=== PATIENT | female | born 1990 | race American Indian/Alaskan Native ===

== ENCOUNTER 2017-11-19 20:21 | Emergency (ER) | payer MEDICAID ==
[2017-11-19 20:31] VITALS: BMI 24.6
--- NOTE | 2017-11-19 20:41 | ED PDOC ---
Arrival/HPI <Neal Esquivel - Last Filed: 11/19/17 22:27> - General Historian: Patient <Shilpi Olmstead - Last Filed: 11/20/17 01:09> - General Chief Complaint: Female Genitourinary Time Seen by Provider: 11/19/17 20:33 - History of Present Illness Narrative History of Present Illness (Text): 11/19/17 20:39 27-year-old female presents today with a 2 day history of lower abdominal pain and vaginal bleeding which has increased slightly today. Patient denies headache dizziness or weakness. Denies urinary symptoms. Patient denies back pain. Patient states she was seen by her australian rules footballer and was scheduled to have an ultrasound tomorrow to evaluate for . Patient states she had a previous ultrasound that showed that she had an ovarian cyst but then when she became they were concerned about the possibility of an ectopic . Patient states her last menstrual cycle was October 06. No medications have been taken at home. Patient states she was spotting yesterday and today she has a little heavier flow. (Shilpi Olmstead) Past Medical History - Provider Review Nursing Documentation Reviewed: Yes - Travel History Have you recently traveled outside [place] w/in the past 3 mons?: No - Past History Past History: No Previous - Infectious Disease Hx of Infectious Diseases: None - Tetanus Immunization Tetanus Immunization: Unknown - Past Medical History Past Medical History: No Previous - Psychiatric Hx Depression: No Hx Emotional Abuse: No Hx Physical Abuse: No Hx Substance Use: No - Past Surgical History Past Surgical History: No Previous - Anesthesia Hx Anesthesia: No - Suicidal Assessment Feels Threatened In Home Enviroment: No <Shilpi Olmstead - Last Filed: 11/20/17 01:09> Family/Social History - Physician Review Nursing Documentation Reviewed: Yes Family/Social History: Unknown Family HX Smoking Status: Unknown If Ever Smoked Hx Alcohol Use: No Hx Substance Use: No Hx Substance Use Treatment: No <Shilpi Olmstead - Last Filed: 11/20/17 01:09> Allergies/Home Meds <Neal Esquivel - Last Filed: 11/19/17 22:27> <Shilpi Olmstead - Last Filed: 11/20/17 01:09> Allergies/Adverse Reactions: Allergies No Known Allergies Allergy (Verified 05/08/16 12:34) Review of Systems - Review of Systems Constitutional: absent: Fatigue, Fevers Respiratory: absent: SOB, Cough Cardiovascular: absent: Chest Pain, Palpitations Gastrointestinal: Abdominal Pain. absent: Constipation, Diarrhea, Nausea, Vomiting Genitourinary Female: Vaginal Bleeding. absent: Dysuria, Frequency, Hematuria Musculoskeletal: absent: Arthralgias, Back Pain, Neck Pain Skin: absent: Rash, Pruritis Neurological: absent: Headache, Dizziness Psychiatric: absent: Anxiety, Depression, Suicidal Ideation <Shilpi Olmstead - Last Filed: 11/20/17 01:09> Physical Exam Vital Signs Reviewed: Yes Temperature: Afebrile Blood Pressure: Normal Pulse: Regular Respiratory Rate: Normal Appearance: Positive for: Well-Appearing, Non-Toxic, Comfortable Pain Distress: None Mental Status: Positive for: Alert and Oriented X 3 - Systems Exam Head: Present: Atraumatic Mouth: Present: Moist Mucous Membranes Neck: Present: Normal Range of Motion Respiratory/Chest: Present: Clear to Auscultation, Good Air Exchange. No: Respiratory Distress, Accessory Muscle Use Cardiovascular: Present: Regular Rate and Rhythm, Normal S1, S2. No: Murmurs Abdomen: Present: Normal Bowel Sounds. No: Tenderness, Distention, Peritoneal Signs, Rebound, Guarding Back: Present: Normal Inspection. No: CVA Tenderness, Midline Tenderness, Paraspinal Tenderness Upper Extremity: Present: Normal ROM Lower Extremity: Present: Normal ROM Neurological: Present: GCS=15, Speech Normal Skin: Present: Warm, Dry, Normal Color. No: Rashes Psychiatric: Present: Alert, Oriented x 3 <Shilpi Olmstead - Last Filed: 11/20/17 01:09> Vital Signs Temp Pulse Resp BP Pulse Ox 11/19/17 20:43 98.1 F 69 18 104/56 L 100 Medical Decision Making <Neal Esquivel - Last Filed: 11/19/17 22:27> Reassessment Condition: Re-examined <Shilpi Olmstead - Last Filed: 11/20/17 01:09> ED Course and Treatment: 11/19/17 20:40 Patient is nontoxic well appearing in no distress. vital signs are stable. CBC: wnl CMP: wnl Beta hC TYPE AND SCREEN: o+ Urinalysis:+ blood, no leukocytes Ultrasound:FINDINGS: Gestation: No intrauterine gestational sac. Uterus/cervix: Retroverted uterus. Endometrium: 0.7 cm in thickness. Small fluid within cervical canal. Ovaries: Normal ovaries. No adnexal masses. Free fluid: Small free fluid within pelvis. IMPRESSION: 1. No intrauterine gestation. DDX: Early IUP, missed , ectopic . 2. Incidental/non-acute findings are described above. beta hcg is 806; consider missed , early iup, ectopic . Discussed all the results the patient. advised f/u with the information technology officer within the next 2 days. advised immediate return if symptoms worsen,persist or if new symptoms develop. advised repeat beta hcg in 2 days. pt states she has f/u with information technology officer on monday11/21/17. Patient verbalizes understanding of discharge instructions and need for immediate followup. all aspects of this case were discussed the attending of record. Impression: + test, vaginal bleeding, abdominal pain Tylenol every 4 hours as needed for pain Increase fluids Followup with the lawn maintenance worker within the next 2 days Return immediately if symptoms worsen persist or if new symptoms develop: High fevers, heavy bleeding, severe abdominal pain, vomiting, diarrhea, dizziness or weakness or any other concerning symptoms develop. Repeat beta hCG in 48 hours (Shilpi Olmstead) - Lab Interpretations Lab Results: 11/19/17 21:19 11/19/17 21:19 Lab Results 11/19/17 21:19: WBC 4.9, RBC 4.12, Hgb 12.0, Hct 37.1, MCV 90.0, MCH 29.1, MCHC 32.3, RDW 12.5, Plt Count 208, MPV 9.8, Gran % 54.3, Lymph % (Auto) 36.5 H, [place] % (Auto) 5.1, Eos % (Auto) 3.7, Baso % (Auto) 0.4, Gran # 2.66, Lymph # ( Auto) 1.8, [place] # (Auto) 0.3, Eos # (Auto) 0.2, Baso # (Auto) 0.02 11/19/17 21:19: Blood Type O POSITIVE, Antibody Screen Negative, BBK History Checked Patient has bt 11/19/17 21:19: Beta HCG, Quant 806.04 H 11/19/17 21:19: Sodium 142, Potassium 3.6, Chloride 106, Carbon Dioxide 27, Anion Gap 13, BUN 8, Creatinine 0.9, Est GFR ( Amer) > 60, Est GFR (Non- Af Amer) > 60, Random Glucose 94, Calcium 9.2, Total Bilirubin 0.3, AST 27, ALT 27, Alkaline Phosphatase 48, Total Protein 6.1, Albumin 3.5, Globulin 2.5, Albumin/Globulin Ratio 1.4 11/19/17 20:50: Urine Color Yellow, Urine Appearance Sl cloudy, Urine pH 6.0, Ur Specific [place] >= 1.030, Urine Protein 30 H, Urine Glucose (UA) Negative, Urine Ketones Negative, Urine Blood Large H, Urine Nitrate Negative, Urine Bilirubin Negative, Urine Urobilinogen 0.2, Ur Leukocyte Esterase Negative, Urine RBC Tntc, Urine WBC 2 - 5, Ur Epithelial Cells 6 - 8, Urine Bacteria Mod, Urine HCG, Qual Positive - RAD Interpretation Radiology Orders: 11/19/17 20:35 OB TRANSVAGINAL [US] Stat - PA / BULLET CASTING OPERATOR / Resident Statement MD/DO has reviewed & agrees with the documentation as recorded. <Neal Esquivel - Last Filed: 11/19/17 22:27> Disposition/Present on Arrival <Neal Esquivel - Last Filed: 11/19/17 22:27> - Present on Arrival Any Indicators Present on Arrival: No History of DVT/PE: No History of Uncontrolled Diabetes: No Urinary Catheter: No History of Decub. Ulcer: No History Surgical Site Infection Following: None - Disposition Have Diagnosis and Disposition been Completed?: Yes Disposition Time: 01:08 Patient Plan: Discharge <Shilpi Olmstead - Last Filed: 11/20/17 01:09> - Disposition Diagnosis: test positive, Vaginal bleeding, Abdominal pain Disposition: HOME/ ROUTINE Condition: GOOD Additional Instructions: Tylenol every 4 hours as needed for pain Increase fluids Followup with the lawn maintenance worker within the next 2 days Return immediately if symptoms worsen persist or if new symptoms develop: High fevers, heavy bleeding, severe abdominal pain, vomiting, diarrhea, dizziness or weakness or any other concerning symptoms develop. Repeat beta hCG in 48 hours Prescriptions: Multivit/Folic Acid/I [ Plus] 1 tab PO DAILY #30 tab Referrals: Chanda Medina [Primary Care Provider] - Follow up with primary Scheff,Minerva Shirley, MD [Staff Provider] - Follow up with primary Forms: [email or web address] (Turkish), WORK NOTE
[2017-11-19 20:44] VITALS: RESP 18; TEMP 98.1
[2017-11-19 21:05] LABS: URINE APPEARANCE SL CLOUDY (CLEAR); URINE BILIRUBIN NEGATIVE (NEGATIVE); URINE BLOOD LARGE (NEGATIVE); URINE COLOR YELLOW (YELLOW); URINE GLUCOSE (UA) NEGATIVE (NEGATIVE); URINE LEUKOCYTE ESTERASE NEGATIVE Leu/uL (NEGATIVE); URINE NITRATE NEGATIVE (NEGATIVE); URINE PROTEIN 30 mg/dL (<30 mg/dL); URINE UROBILINOGEN 0.2 E.U./dL (<1 E.U./dL)
[2017-11-19 21:11] LABS: HCG,QUALITATIVE URINE POSITIVE (NEGATIVE); URINE BACTERIA MOD (NEG); URINE RBC TNTC /hpf (0-2)
[2017-11-19 22:15] LABS: BASO # 0.02 K/mm3 (0.0-2.0); BASO % 0.4 % (0.0-3.0); EOS # 0.2 (0.0-0.7); EOS % 3.7 % (1.5-5.0); GRAN # 2.66 (1.4-6.5); GRAN % 54.3 % (50.0-68.0); LYMPH # 1.8 (1.2-3.4); LYMPH % 36.5 % (22.0-35.0); MEAN CORPUSCULAR HEMOGLOBIN 29.1 pg (25.0-35.0); MEAN CORPUSCULAR HGB CONC 32.3 g/dl (31.0-37.0); MEAN PLATELET VOLUME 9.8 fl (7.0-11.0); MONO # 0.3 (0.1-0.6); MONO % 5.1 % (1.0-6.0); RBC 4.12 10^6/uL (3.5-6.1); RED CELL DISTRIBUTION WIDTH 12.5 % (11.5-14.5); WHITE BLOOD COUNT 4.9 10^3/ul (4.5-11.0)
[2017-11-19 22:46] LABS: ALB/GLOB RATIO 1.4 (1.1-1.8); ALBUMIN 3.5 g/dL (3.0-4.8); ALT/SGPT 27 U/L (7-56); AST/SGOT 27 U/L (14-36); BLOOD UREA NITROGEN 8 mg/dL (7-21); CALCIUM 9.2 mg/dL (8.4-10.5); GFR AFRICAN-AMERICAN > 60; GFR NON-AFRICAN AMERICAN > 60
--- NOTE | 2017-11-20 00:25 | US ---
EXAM: US First Trimester, Transabdominal CLINICAL HISTORY: 27 years old, female; Signs and symptoms; Lmp or gestational age (in weeks): 10/06/2017; Other: Lt pelvic pain/bleeding; ; Additional info: Pain/ bleeding TECHNIQUE: Real-time transabdominal obstetrical ultrasound of the maternal pelvis and a first trimester with image documentation. COMPARISON: No relevant prior studies available. FINDINGS: Gestation: No intrauterine gestational sac. Uterus/cervix: Retroverted uterus. Endometrium: 0.7 cm in thickness. Small fluid within cervical canal. Ovaries: Normal ovaries. No adnexal masses. Free fluid: Small free fluid within pelvis. IMPRESSION: 1. No intrauterine gestation. DDX: Early IUP, missed , ectopic . 2. Incidental/non-acute findings are described above. EXAM: US , Transvaginal CLINICAL HISTORY: 27 years old, female; Signs and symptoms; Lmp or gestational age (in weeks): 10/06/2017; Other: Lt pelvic pain/bleeding; ; Additional info: Pain/ bleeding TECHNIQUE: Real-time transvaginal obstetrical ultrasound of the maternal pelvis and a first trimester with image documentation. Transvaginal imaging was used for better evaluation of the fetus and adnexa. COMPARISON: No relevant prior studies available. FINDINGS: Gestation: No intrauterine gestational sac. Uterus/cervix: Retroverted uterus. Endometrium: 0.7 cm in thickness. Small fluid within cervical canal. Ovaries: Normal ovaries. No adnexal masses. Free fluid: Small free fluid within pelvis.
[2017-11-20 01:52] VITALS: BP 102/60; PULSE 72; O2SAT 98
== END 2017-11-20 01:50 | disposition home or self-care (01) ==
LOC: ED 20:21
DX: O20.9 Hemorrhage in early pregnancy, unspecified (principal); R10.30 Lower abdominal pain, unspecified

== ENCOUNTER 2017-11-21 22:52 | Emergency (ER) | payer MEDICAID ==
[2017-11-21 23:13] VITALS: BMI 24.4
--- NOTE | 2017-11-21 23:29 | ED PDOC ---
Arrival/HPI - General Chief Complaint: Female Genitourinary Time Seen by Provider: 11/21/17 23:27 Historian: Patient - History of Present Illness Narrative History of Present Illness (Text): 11/21/17 23:29 27-year-old female A3 presents today with a 2 day history of pelvic and vaginal bleeding. Patient stated she saw her REMOTE RUBY ON RAILS DEVELOPER and found to be last week. Patient stated her symptoms worsen 2 days ago, and she came to this ED. Patient was recommended to see her REMOTE RUBY ON RAILS DEVELOPER in 2 days. Patient saw her REMOTE RUBY ON RAILS DEVELOPER, who clarice blood to check for Beta Quant., but since the result may take 2-3 days, her REMOTE RUBY ON RAILS DEVELOPER recommended patient to come to ED to have blood test done. Patient admits pelvic pain, and vaginal bleeding had significantly improved. Patient denies new somatic complains. Time/Duration: Other (see hpi) Context: Home Past Medical History - Provider Review Nursing Documentation Reviewed: Yes - Past History Past History: No Previous - Infectious Disease Hx of Infectious Diseases: None - Tetanus Immunization Tetanus Immunization: Unknown - Past Medical History Past Medical History: No Previous - Psychiatric Hx Substance Use: No - Past Surgical History Past Surgical History: No Previous - Anesthesia Hx Anesthesia: No Hx Anesthesia Reactions: No Hx Malignant Hyperthermia: No - Suicidal Assessment Feels Threatened In Home Enviroment: No Family/Social History - Physician Review Nursing Documentation Reviewed: Yes Family/Social History: Other (noncontributory) Smoking Status: Unknown If Ever Smoked Hx Alcohol Use: No Hx Substance Use: No Hx Substance Use Treatment: No Allergies/Home Meds Allergies/Adverse Reactions: Allergies No Known Allergies Allergy (Verified 11/21/17 23:13) Review of Systems - Review of Systems Constitutional: Normal. absent: Fatigue, Weight Change, Fevers Eyes: Normal ENT: Normal Respiratory: Normal. absent: SOB, Cough Cardiovascular: Normal. absent: Chest Pain, Palpitations Gastrointestinal: Other (pelvic pain) Genitourinary Female: Vaginal Bleeding. absent: Dysuria, Frequency, Hematuria, Vaginal Discharge Musculoskeletal: Normal. absent: Back Pain, Neck Pain Skin: Normal. absent: Rash Neurological: Normal. absent: Headache, Dizziness, Focal Weakness, Gait Changes , Speech Changes Endocrine: Normal Hemo/Lymphatic: Normal Psychiatric: Normal Physical Exam Vital Signs Temp Pulse Resp BP Pulse Ox 11/22/17 01:00 97.9 F 64 19 103/53 L 100 11/21/17 23:14 98.6 F 65 18 99/63 L 97 Temperature: Afebrile Blood Pressure: Normal Pulse: Regular Respiratory Rate: Normal Appearance: Positive for: Well-Appearing, Non-Toxic, Comfortable Pain Distress: None Mental Status: Positive for: Alert and Oriented X 3 - Systems Exam Head: Present: Atraumatic, Normocephalic Mouth: Present: Moist Mucous Membranes Neck: Present: Normal Range of Motion Respiratory/Chest: Present: Clear to Auscultation, Good Air Exchange. No: Respiratory Distress, Accessory Muscle Use, Wheezes, Retracting, Rhonchi Cardiovascular: Present: Regular Rate and Rhythm, Normal S1, S2. No: Murmurs Abdomen: Present: Normal Bowel Sounds. No: Tenderness, Distention, Peritoneal Signs, Rebound, Guarding Back: Present: Normal Inspection. No: CVA Tenderness Upper Extremity: Present: Normal Inspection, Normal ROM Lower Extremity: Present: Normal Inspection, Normal ROM Neurological: Present: GCS=15, CN II-XII Intact, Speech Normal, Motor Func Grossly Intact, Normal Sensory Function, Normal Cerebellar Funct, Gait Normal Skin: Present: Warm, Dry, Normal Color. No: Rashes Psychiatric: Present: Alert, Oriented x 3, Normal Insight, Normal Concentration Medical Decision Making ED Course and Treatment: 11/22/17 01:12 Re-evaluation. Patient feels better. Discussed results and plan with patient who expresses understanding. All questions answered and there is agreement with the plan to discharge home with instructions. Patient stable for discharge. Return if symptoms persist or worsen. Patient was recommended to follow SYSTEMS SOFTWARE ENGINEER doctor tomorrow Patient understood that blood test suggest she is having a miscarriage. Re-evaluation Time: 01:52 Reassessment Condition: Re-examined, Improved - Lab Interpretations Lab Results: Lab Results 11/21/17 23:46: Beta HCG, Quant 150.96 H I have reviewed the lab results: Yes Interpretation: No clinic. lab abnormalty Disposition/Present on Arrival - Present on Arrival Any Indicators Present on Arrival: No History of DVT/PE: No History of Uncontrolled Diabetes: No Urinary Catheter: No History of Decub. Ulcer: No History Surgical Site Infection Following: None - Disposition Have Diagnosis and Disposition been Completed?: Yes Diagnosis: Miscarriage Disposition: HOME/ ROUTINE Disposition Time: 01:53 Patient Plan: Discharge Condition: GOOD Discharge Instructions (ExitCare): Miscarriage Additional Instructions: You need to see your REMOTE RUBY ON RAILS DEVELOPER doctor today for revaluation. Return to emergency if symptoms worsen. Referrals: [facility] [Outside] - [facility] with [facility] [[facility]] - Follow up with primary Forms: [employer] (Andorran)
[2017-11-22 01:23] VITALS: BP 103/53; PULSE 64; RESP 19; TEMP 97.9; O2SAT 100
== END 2017-11-22 02:05 | disposition home or self-care (01) ==
LOC: ED 22:52
DX: O03.9 Complete or unspecified spontaneous abortion without complication (principal)

== ENCOUNTER 2018-05-05 20:19 | Emergency (ER) | payer SELFPAY ==
[2018-05-05 20:20] VITALS: BMI 24.4
[2018-05-05 20:52] VITALS: O2SAT 99
--- NOTE | 2018-05-05 21:38 | ED PDOC ---
Arrival/HPI - General Chief Complaint: Weakness/Neurological Deficit Time Seen by Provider: 05/05/18 20:29 Historian: Patient - History of Present Illness Narrative History of Present Illness (Text): 05/05/18 21:38 This 27 yo female gravid, A5, present to this ED c/o feeling light headedness x 2 days. Patient stated she found out she was x 2 weeks ago. Patient has an appointment to see her TEARER PRESS CLIPPING next Monday. Patient denies fever, sob, cp, abdominal pain, pelvic pain, vaginal bleeding, urinary symptoms, vaginal discharge, or trauma. Time/Duration: Other (see hpi) Context: Home Past Medical History - Provider Review Nursing Documentation Reviewed: Yes - Past History Past History: No Previous - Infectious Disease Hx of Infectious Diseases: None - Tetanus Immunization Tetanus Immunization: Unknown - Past Medical History Past Medical History: No Previous - Psychiatric Hx Psychophysiologic Disorder: No Hx Depression: No Hx Emotional Abuse: No Hx Physical Abuse: No Hx Substance Use: No - Past Surgical History Past Surgical History: No Previous - Anesthesia Hx Anesthesia: No Hx Anesthesia Reactions: No Hx Malignant Hyperthermia: No - Suicidal Assessment Feels Threatened In Home Enviroment: No Family/Social History - Physician Review Nursing Documentation Reviewed: Yes Family/Social History: Other (noncontributory) Smoking Status: Never Smoked Hx Alcohol Use: No Hx Substance Use: No Hx Substance Use Treatment: No Allergies/Home Meds Allergies/Adverse Reactions: Allergies No Known Allergies Allergy (Verified 05/05/18 20:47) Review of Systems - Review of Systems Constitutional: Normal. absent: Fatigue, Weight Change, Fevers Eyes: Normal ENT: Normal Respiratory: Normal Cardiovascular: Normal Gastrointestinal: Normal Genitourinary Female: Normal Musculoskeletal: Normal Skin: Normal Neurological: Dizziness. absent: Headache, Focal Weakness, Gait Changes, Speech Changes, Facial Droop, Disequilibrium, Seizure Endocrine: Normal Hemo/Lymphatic: Normal Psychiatric: Normal Physical Exam Vital Signs Temp Pulse Resp BP Pulse Ox 05/05/18 23:04 98.6 F 79 19 121/64 99 05/05/18 20:48 99.2 F 72 16 98/59 L 99 Temperature: Afebrile Blood Pressure: Normal Pulse: Regular Respiratory Rate: Normal Appearance: Positive for: Well-Appearing, Non-Toxic, Comfortable Pain Distress: None Mental Status: Positive for: Alert and Oriented X 3 - Systems Exam Head: Present: Atraumatic, Normocephalic Pupils: Present: PERRL Extroacular Muscles: Present: EOMI Conjunctiva: Present: Normal Mouth: Present: Moist Mucous Membranes Neck: Present: Normal Range of Motion Respiratory/Chest: Present: Clear to Auscultation, Good Air Exchange. No: Respiratory Distress, Accessory Muscle Use Cardiovascular: Present: Regular Rate and Rhythm, Normal S1, S2. No: Murmurs Abdomen: No: Tenderness, Distention, Peritoneal Signs Back: Present: Normal Inspection. No: CVA Tenderness, Midline Tenderness Upper Extremity: Present: Normal Inspection, Normal ROM, NORMAL PULSES. No: Cyanosis, Edema Lower Extremity: Present: Normal Inspection, NORMAL PULSES, Normal ROM. No: Edema, CALF TENDERNESS Neurological: Present: GCS=15, CN II-XII Intact, Speech Normal, Motor Func Grossly Intact, Normal Sensory Function, Normal Cerebellar Funct, Gait Normal, Memory Normal Skin: Present: Warm, Dry, Normal Color. No: Rashes Psychiatric: Present: Alert, Oriented x 3, Normal Insight, Normal Concentration Medical Decision Making ED Course and Treatment: 05/05/18 23:41 Re-evaluation. Patient feels better. Discussed results and plan with patient who expresses understanding. All questions answered and there is agreement with the plan to discharge home with instructions. Patient stable for discharge. Return if symptoms persist or worsen. I reviewed labs and UA with patient. UA shows WBC, and patient prefers to take ABX right now. She will f/u urine culture with her TEARER PRESS CLIPPING. She will return to ED if symptoms worsen. Re-evaluation Time: 23:41 Reassessment Condition: Re-examined, Improved - Lab Interpretations Lab Results: 05/05/18 21:08 05/05/18 21:08 Lab Results 05/05/18 21:08: Beta HCG, Quant 62329.00 H 05/05/18 21:08: Sodium 138, Potassium 3.6, Chloride 103, Carbon Dioxide 25, Anion Gap 13, BUN 11, Creatinine 0.8, Est GFR ( Amer) > 60, Est GFR (Non- Af Amer) > 60, Random Glucose 94, Calcium 9.0, Magnesium 1.9, Total Bilirubin 0.3, AST 20, ALT 23, Alkaline Phosphatase 59, Total Protein 6.5, Albumin 3.7, Globulin 2.8, Albumin/Globulin Ratio 1.3 05/05/18 21:08: Urine Color Yellow, Urine Appearance Clear, Urine pH 7.0, Ur Specific [place] 1.015, Urine Protein Negative, Urine Glucose (UA) Negative, Urine Ketones Negative, Urine Blood Negative, Urine Nitrate Negative, Urine Bilirubin Negative, Urine Urobilinogen 1.0 H, Ur Leukocyte Esterase Small H, Urine RBC Negative, Urine WBC 2 - 5, Ur Epithelial Cells 3 - 4, Urine Bacteria Few 05/05/18 21:08: WBC 6.3 D, RBC 4.13, Hgb 12.2, Hct 35.6 L, MCV 86.2 D, MCH 29.5, MCHC 34.3, RDW 12.7, Plt Count 193, MPV 9.5, Gran % 68.9 H, Lymph % (Auto ) 23.7, [place] % (Auto) 4.8, Eos % (Auto) 2.4, Baso % (Auto) 0.2, Gran # 4.33, Lymph # (Auto) 1.5, [place] # (Auto) 0.3, Eos # (Auto) 0.2, Baso # (Auto) 0.01 I have reviewed the lab results: Yes Interpretation: No sign. chg./baseline - RAD Interpretation Narrative RAD Interpretations (Text): 05/05/18 23:21 FINDINGS: Gestation: Single live intrauterine gestation. heart rate of 170 beats per minute. [place]-rump length of 5.2 cm, correlating with gestational age of 11 weeks 6 days. Uterus/cervix: No subchorionic hemorrhage. Closed cervix. Probable nabothian cysts. Ovaries: RIGHT ovary: Probable 2.1 x 1.9 x 1.5 cm corpus luteal cyst. LEFT ovary : Normal. No adnexal masses. Free fluid: No significant free fluid. IMPRESSION: 1. Single live intrauterine gestation. 2. Incidental/non-acute findings are described above Radiology Orders: 05/05/18 21:40 OB TRANSVAGINAL [US] Stat - Medication Orders Current Medication Orders: Discontinued Medications Cephalexin Monohydrate (Keflex) 500 mg PO STAT STA PRN Reason: Protocol Stop: 05/05/18 23:42 Sodium Chloride (Sodium Chloride 0.9%) 1,000 mls @ 999 mls/hr IV .Q1H1M STA Stop: 05/05/18 22:40 Last Admin: 05/05/18 21:46 Dose: 999 mls/hr eMAR Start Stop Document 05/05/18 21:46 [place] (Rec: 05/05/18 21:46 [facility] [id number]) Intravenous Solution Start Date 05/05/18 Start Time 21:46 End Date 05/05/18 End time 22:47 Total Infusion Time 61 Metoclopramide HCl (Reglan) 10 mg IVP STAT STA Stop: 05/05/18 23:27 Disposition/Present on Arrival - Present on Arrival Any Indicators Present on Arrival: No History of DVT/PE: No History of Uncontrolled Diabetes: No Urinary Catheter: No History of Decub. Ulcer: No History Surgical Site Infection Following: None - Disposition Have Diagnosis and Disposition been Completed?: Yes Diagnosis: 11 weeks gestation of Disposition: HOME/ ROUTINE Disposition Time: 23:43 Patient Plan: Discharge Condition: IMPROVED Additional Instructions: Call private TEARER PRESS CLIPPING doctor for follow up visit in 1=-2 days. Return to emergency if symptoms worsen. Take OTC regular strength Tylenol for headache as needed. FINDINGS: Gestation: Single live intrauterine gestation. heart rate of 170 beats per minute. [place]-rump length of 5.2 cm, correlating with gestational age of 11 weeks 6 days. Uterus/cervix: No subchorionic hemorrhage. Closed cervix. Probable nabothian cysts. Ovaries: RIGHT ovary: Probable 2.1 x 1.9 x 1.5 cm corpus luteal cyst. LEFT ovary : Normal. No adnexal masses. Free fluid: No significant free fluid. IMPRESSION: 1. Single live intrauterine gestation. 2. Incidental/non-acute findings are described above. Beta Quant. 02481.00 Prescriptions: Cephalexin [cephalexin] 500 mg PO BID #[id number] Referrals: [facility] [Outside] - [facility] with [facility] [Outside] - Follow up with primary Forms: [employer] (Arabic)
[2018-05-05] MEDS ORDERED: Sodium Chloride 0.9% 1,000 ML IV STA (21:40)
[2018-05-05 22:04] LABS: BASO # 0.01 K/mm3 (0.0-2.0); BASO % 0.2 % (0.0-3.0); EOS # 0.2 (0.0-0.7); EOS % 2.4 % (1.5-5.0); GRAN # 4.33 (1.4-6.5); GRAN % 68.9 % (50.0-68.0); HEMOGLOBIN 12.2 g/dL (12.0-16.0); LYMPH # 1.5 (1.2-3.4); LYMPH % 23.7 % (22.0-35.0); MEAN CELL VOLUME 86.2 fl (80.0-105.0); MEAN CORPUSCULAR HEMOGLOBIN 29.5 pg (25.0-35.0); MEAN CORPUSCULAR HGB CONC 34.3 g/dl (31.0-37.0); MEAN PLATELET VOLUME 9.5 fl (7.0-11.0); MONO # 0.3 (0.1-0.6); MONO % 4.8 % (1.0-6.0); RBC 4.13 10^6/uL (3.5-6.1); RED CELL DISTRIBUTION WIDTH 12.7 % (11.5-14.5); URINE BILIRUBIN NEGATIVE (NEGATIVE); URINE BLOOD NEGATIVE (NEGATIVE); URINE GLUCOSE (UA) NEGATIVE (NEGATIVE); URINE LEUKOCYTE ESTERASE SMALL Leu/uL (NEGATIVE); URINE PROTEIN NEGATIVE mg/dL (<30 mg/dL); WHITE BLOOD COUNT 6.3 10^3/ul (4.5-11.0)
[2018-05-05 22:05] LABS: URINE APPEARANCE CLEAR (CLEAR); URINE COLOR YELLOW (YELLOW)
[2018-05-05 22:12] LABS: URINE BACTERIA FEW (NEG); URINE RBC NEGATIVE /hpf (0-2)
[2018-05-05 22:15] LABS: ALB/GLOB RATIO 1.3 (1.1-1.8); ALBUMIN 3.7 g/dL (3.0-4.8); ALT/SGPT 23 U/L (7-56); AST/SGOT 20 U/L (14-36); BLOOD UREA NITROGEN 11 mg/dL (7-21); GFR AFRICAN-AMERICAN > 60; GFR NON-AFRICAN AMERICAN > 60
[2018-05-05 23:05] VITALS: BP 121/64; PULSE 79; RESP 19; TEMP 98.6
--- NOTE | 2018-05-07 09:44 | US ---
Date of service: 05/05/2018 PROCEDURE: OB Pelvic Ultrasound HISTORY: Left flank pain COMPARISON: None available. TECHNIQUE: Transvaginal pelvic ultrasound was performed. FINDINGS: UTERUS: Single Live intrauterine gestation. CRL measures 5.1 cm equivalent to 11 weeks and 6 days gestatioin Gestational sac diameter measures 5.2 cm equivalent to 11 weeks and 0 day gestation age (Ultrasound estimated): 11 weeks and 3 days Date of delivery (Ultrasound estimated) : 11/21/2018 Heart rate: 169 bpm. Ileana-gestational hemorrhage: None. Uterus measures 10.1 x 8.1 x 9.6 cm. Anteverted, normal in size and appearance with No fibroid or other mass lesion seen. CERVIX: Long and closed. No cervical abnormality seen. RIGHT OVARY: Measures 3.4 x 1.8 x 3.8 cm. No mass. Normal flow. LEFT OVARY: Measures 2.9 x 2.0 x 3.7 cm. No mass. Normal flow. FREE FLUID: None. OTHER FINDINGS: None. IMPRESSION: Single live intrauterine gestation with mean gestational age of 11 weeks and 3 days. The estimated date of delivery by ultrasound is 11/21/2018. The ultrasound dates correspond with the clinical dates. A preliminary report was provided by [employer].
== END 2018-05-06 00:25 | disposition home or self-care (01) ==
LOC: ED 20:19
DX: O26.891 Other specified pregnancy related conditions, first trimester (principal); Z3A.11 11 weeks gestation of pregnancy; R42 Dizziness and giddiness
CPT/HCPCS: 76817; 80053; 81001; 83735; 84702; 85025; 87086; 96360; 99285; J7030

== ENCOUNTER 2018-10-11 22:53 | Emergency (ER) | payer MEDICAID ==
[2018-10-11 22:54] VITALS: BMI 24.4
--- NOTE | 2018-10-12 00:39 | ED PDOC ---
Arrival/HPI - General Chief Complaint: Cough, Cold, Congestion Time Seen by Provider: 10/11/18 23:40 Historian: Patient - History of Present Illness Narrative History of Present Illness (Text): 10/12/18 00:39 A 28 year old female presents to the emergency department complaining of sore throat, cough, and congestion for the past 2 weeks. Currently 8 months , is able to feel the baby kick and there has been no change in movement. Patient denies any vaginal bleeding, fever, chills, chest pain, shortness of breath, abdominal pain, nausea, vomiting, or any other complaints at this time. Time/Duration: < month (2 weeks) Past Medical History - Provider Review Nursing Documentation Reviewed: Yes - Past History Past History: No Previous - Infectious Disease Hx of Infectious Diseases: None - Tetanus Immunization Tetanus Immunization: Unknown - Past Medical History Past Medical History: No Previous - Cardiac Hx Cardiac Disorders: No - Psychiatric Hx Psychophysiologic Disorder: No Hx Depression: No Hx Emotional Abuse: No Hx Physical Abuse: No Hx Substance Use: No - Past Surgical History Past Surgical History: No Previous - Anesthesia Hx Anesthesia: No Hx Anesthesia Reactions: No Hx Malignant Hyperthermia: No - Suicidal Assessment Feels Threatened In Home Enviroment: No Family/Social History - Physician Review Nursing Documentation Reviewed: Yes Family/Social History: No Known Family HX Smoking Status: Never Smoked Hx Alcohol Use: No Hx Substance Use: No Hx Substance Use Treatment: No Allergies/Home Meds Allergies/Adverse Reactions: Allergies No Known Allergies Allergy (Verified 10/11/18 23:16) Home Medications: Home Meds Medication Instructions Recorded Confirmed No Known Home Med 10/11/18 10/11/18 Review of Systems - Physician Review All systems were reviewed & negative as marked: Yes - Review of Systems Constitutional: absent: Fevers ENT: Sore Throat, Sinus Congestion Respiratory: Cough. absent: SOB Cardiovascular: absent: Chest Pain Gastrointestinal: absent: Abdominal Pain, Nausea, Vomiting Genitourinary Female: absent: Vaginal Bleeding Physical Exam Vital Signs Reviewed: Yes Vital Signs Temp Pulse Resp BP Pulse Ox 10/11/18 23:16 98.5 F 87 18 110/67 98 Temperature: Afebrile Blood Pressure: Normal Pulse: Regular Respiratory Rate: Normal Appearance: Positive for: Well-Appearing, Non-Toxic, Comfortable Pain Distress: None Mental Status: Positive for: Alert and Oriented X 3 - Systems Exam Head: Present: Atraumatic, Normocephalic Pupils: Present: PERRL Extroacular Muscles: Present: EOMI Conjunctiva: Present: Normal Mouth: Present: Moist Mucous Membranes Neck: Present: Normal Range of Motion Respiratory/Chest: Present: Clear to Auscultation, Good Air Exchange. No: Respiratory Distress, Accessory Muscle Use Cardiovascular: Present: Regular Rate and Rhythm, Normal S1, S2. No: Murmurs Abdomen: No: Tenderness, Distention, Peritoneal Signs Back: Present: Normal Inspection Upper Extremity: Present: Normal Inspection. No: Cyanosis, Edema Lower Extremity: Present: Normal Inspection. No: Edema Neurological: Present: GCS=15, CN II-XII Intact, Speech Normal Skin: Present: Warm, Dry, Normal Color. No: Rashes Psychiatric: Present: Alert, Oriented x 3, Normal Insight, Normal Concentration Medical Decision Making ED Course and Treatment: 10/12/18 00:41 Impression: 28 year old female with sore throat, congestion, and cough. No acute findings on physical examination. Plan: -- Rapid Strep Test -- Influenza A B Test -- Reassess and disposition Progress Notes: - Scribe Statement The provider has reviewed the documentation as recorded by the Malcom Jackson Provider Scribe Attestation: All medical record entries made by the Scribe were at my direction and personally dictated by me. I have reviewed the chart and agree that the record accurately reflects my personal performance of the history, physical exam, medical decision making, and the department course for this patient. I have also personally directed, reviewed, and agree with the discharge instructions and disposition. Disposition/Present on Arrival - Present on Arrival History of DVT/PE: No History of Uncontrolled Diabetes: No Urinary Catheter: No History of Decub. Ulcer: No History Surgical Site Infection Following: None - Disposition Forms: [employer] (Nicaraguan)
--- NOTE | 2018-10-12 00:44 | ED PDOC ---
Arrival/HPI - General Chief Complaint: Cough, Cold, Congestion Time Seen by Provider: 10/11/18 23:40 Historian: Patient - History of Present Illness Narrative History of Present Illness (Text): 10/12/18 00:43 A 28 year old female presents to the emergency department complaining of sore throat, cough, and congestion for the past 2 weeks. Currently 8 months , is able to feel the baby kick and there has been no change in movement. Patient denies any vaginal bleeding, fever, chills, chest pain, shortness of breath, abdominal pain, nausea, vomiting, or any other complaints at this time. Time/Duration: < month (2 weeks) Past Medical History - Provider Review Nursing Documentation Reviewed: Yes - Past History Past History: No Previous - Infectious Disease Hx of Infectious Diseases: None - Tetanus Immunization Tetanus Immunization: Unknown - Past Medical History Past Medical History: No Previous - Cardiac Hx Cardiac Disorders: No - Psychiatric Hx Psychophysiologic Disorder: No Hx Depression: No Hx Emotional Abuse: No Hx Physical Abuse: No Hx Substance Use: No - Past Surgical History Past Surgical History: No Previous - Anesthesia Hx Anesthesia: No Hx Anesthesia Reactions: No Hx Malignant Hyperthermia: No - Suicidal Assessment Feels Threatened In Home Enviroment: No Family/Social History - Physician Review Nursing Documentation Reviewed: Yes Family/Social History: No Known Family HX Smoking Status: Never Smoked Hx Alcohol Use: No Hx Substance Use: No Hx Substance Use Treatment: No Allergies/Home Meds Allergies/Adverse Reactions: Allergies No Known Allergies Allergy (Verified 10/11/18 23:16) Home Medications: Home Meds Medication Instructions Recorded Confirmed No Known Home Med 10/11/18 10/11/18 Review of Systems - Physician Review All systems were reviewed & negative as marked: Yes - Review of Systems Constitutional: absent: Fevers, Night Sweats ENT: Sore Throat, Sinus Congestion Respiratory: Cough. absent: SOB Cardiovascular: absent: Chest Pain Gastrointestinal: absent: Abdominal Pain, Nausea, Vomiting Genitourinary Female: absent: Vaginal Bleeding Physical Exam Vital Signs Reviewed: Yes Vital Signs Temp Pulse Resp BP Pulse Ox 10/11/18 23:16 98.5 F 87 18 110/67 98 Temperature: Afebrile Blood Pressure: Normal Pulse: Regular Respiratory Rate: Normal Appearance: Positive for: Well-Appearing, Non-Toxic, Comfortable Pain Distress: None Mental Status: Positive for: Alert and Oriented X 3 - Systems Exam Head: Present: Atraumatic, Normocephalic Pupils: Present: PERRL Extroacular Muscles: Present: EOMI Conjunctiva: Present: Normal Mouth: Present: Moist Mucous Membranes Neck: Present: Normal Range of Motion Respiratory/Chest: Present: Clear to Auscultation, Good Air Exchange. No: Respiratory Distress, Accessory Muscle Use Cardiovascular: Present: Regular Rate and Rhythm, Normal S1, S2. No: Murmurs Abdomen: No: Tenderness, Distention, Peritoneal Signs Back: Present: Normal Inspection Upper Extremity: Present: Normal Inspection. No: Cyanosis, Edema Lower Extremity: Present: Normal Inspection. No: Edema Neurological: Present: GCS=15, CN II-XII Intact, Speech Normal Skin: Present: Warm, Dry, Normal Color. No: Rashes Psychiatric: Present: Alert, Oriented x 3, Normal Insight, Normal Concentration Medical Decision Making ED Course and Treatment: 10/12/18 00:43 Impression: 28 year old female with sore throat, congestion, and cough. No acute findings on examination. Plan: -- Rapid Strep Test -- Influenza A B Test -- Reassess and disposition Progress Notes: Flu : (-) Rapid strep : (-) Diagnosis of viral illness d/w the patient. Advised to follow up with primary care physician in 1-2 days without fail. Advised to take tylenol only for fever or pain, drink plenty of fluids and bedrest. Return to the emergency room at any time for any new or worsening symptoms. Patient states she fully agrees with and understands discharge instructions. States that she agrees with the plan and disposition. Verbalized and repeated discharge instructions and plan. I have given the patient opportunity to ask any additional questions. - PA / WASHER [employer] CAPPER MACHINE OPERATOR / Resident Statement MD/DO has reviewed & agrees with the documentation as recorded. - Scribe Statement The provider has reviewed the documentation as recorded by the Malcom Jackson Provider Scribe Attestation: All medical record entries made by the Malcom were at my direction and personally dictated by me. I have reviewed the chart and agree that the record accurately reflects my personal performance of the history, physical exam, medical decision making, and the department course for this patient. I have also personally directed, reviewed, and agree with the discharge instructions and disposition. Disposition/Present on Arrival - Present on Arrival Any Indicators Present on Arrival: No History of DVT/PE: No History of Uncontrolled Diabetes: No Urinary Catheter: No History of Decub. Ulcer: No History Surgical Site Infection Following: None - Disposition Have Diagnosis and Disposition been Completed?: Yes Diagnosis: Viral respiratory illness Disposition: HOME/ ROUTINE Disposition Time: :20 Patient Plan: Discharge Patient Problems: Current Active Problems Problem Status Onset Viral respiratory illness Acute Condition: STABLE Discharge Instructions (ExitCare): Viral Syndrome (DC) Additional Instructions: Thank you for letting us take care of you today. You were treated for viral illness. The emergency medical care you received today was directed at your acute symptoms. It may take several days for your symptoms to resolve. Return to the Emergency Department if your symptoms worsen, do not improve, or if you have any other problems. Please contact your doctor in 2 days for re-evaluation and follow up. Bring any paperwork you were given at discharge with you along with any medications you are taking to your follow up visit. Our treatment cannot replace ongoing medical care by a primary care provider (PCP) outside of the emergency department. Thank you for allowing the [facility] team to be part of your care today. Referrals: Pippa Monreal [Primary Care Provider] - Follow up with primary Forms: [employer] (Arabic), WORK NOTE
[2018-10-12 01:56] VITALS: BP 115/62; PULSE 82; RESP 17; TEMP 98.4; O2SAT 99
== END 2018-10-12 01:56 | disposition home or self-care (01) ==
LOC: ED 22:53
DX: J98.9 Respiratory disorder, unspecified (principal)

== ENCOUNTER 2018-12-06 22:07 | Emergency (ER) | payer MEDICAID ==
[2018-12-06 22:28] VITALS: TEMP 98.2; O2SAT 100; BMI 27.4
--- NOTE | 2018-12-06 23:11 | ED PDOC ---
Arrival/HPI - General Chief Complaint: ENT Problem Time Seen by Provider: 12/06/18 22:34 Historian: Patient - History of Present Illness Narrative History of Present Illness (Text): 12/06/18 23:08 28 year old female, with no significant past medical history, presents to the emergency department with throat and left ear pain, for 3 days. Patient informs throat irritation began 3 days ago and ear pain began about 1 day later. Patient informs she has had sick contact with her son, and is feeling sick herself. Patient states she is having congestion and runny nose. Patient also informs of some mild eye irritation to the right eye. Patient denies any fevers, chills, headache, dizziness, chest pain, shortness of breath, abdominal pain, nausea, vomiting, diarrhea, back pain, neck pain, or any other complaint. Time/Duration: < week (3 days) Symptom Onset: Gradual Symptom Course: Unchanged Quality: Pressure Activities at Onset: Light Past Medical History - Provider Review Nursing Documentation Reviewed: Yes - Past History Past History: No Previous - Infectious Disease Hx of Infectious Diseases: None - Tetanus Immunization Tetanus Immunization: Unknown - Past Medical History Past Medical History: No Previous - Cardiac Hx Cardiac Disorders: No Hx Hypertension: No - Psychiatric Hx Depression: No Hx Substance Use: No - Past Surgical History Past Surgical History: No Previous - Anesthesia Hx Anesthesia: No Hx Anesthesia Reactions: No Hx Malignant Hyperthermia: No - Suicidal Assessment Feels Threatened In Home Enviroment: No Family/Social History - Physician Review Nursing Documentation Reviewed: Yes Family/Social History: No Known Family HX Smoking Status: Never Smoked Hx Alcohol Use: No Hx Substance Use: No Hx Substance Use Treatment: No Allergies/Home Meds Allergies/Adverse Reactions: Allergies No Known Allergies Allergy (Verified 10/11/18 23:16) Home Medications: Home Meds Medication Instructions Recorded Confirmed Vit No.126/Iron/Folic 1 tab PO DAILY MDD 1 11/21/18 11/21/18 [Classic Tablet] Review of Systems - Physician Review All systems were reviewed & negative as marked: Yes - Review of Systems Constitutional: absent: Fevers Gastrointestinal: absent: Vomiting Physical Exam - Physical Exam Narrative Physical Exam (Text): 12/06/18 23:11 Constitutional: No acute distress. Head: Normocephalic. Atraumatic. Eyes: PERRL, Mild conjunctival injection of right eye. ENT: No erythema to pharynx, no exudates; Congestion, rhinorrhea; Left TM erythematous Neck: Supple. Cardiovascular: Regular rate. Chest: No tenderness. Respiratory: Clear to auscultation bilaterally. GI: Soft. Nontender. Nondistended. Back: No CVA tenderness. Musculoskeletal: No tenderness or swelling of extremities. Skin: No rash. Neurologic: Alert, no focal deficit. Vital Signs Reviewed: Yes Vital Signs Temp Pulse Resp BP Pulse Ox 12/06/18 22:28 98.2 F 89 18 130/67 100 Temperature: Afebrile Blood Pressure: Normal Pulse: Regular Respiratory Rate: Normal Appearance: Positive for: Well-Appearing, Non-Toxic, Comfortable Pain Distress: None Mental Status: Positive for: Alert and Oriented X 3 Medical Decision Making ED Course and Treatment: 12/06/18 23:15 Impression: 28 year old female presents with throat and left ear pain. Plan: -- Amoxicillin -- POC urine positive as patient gave just 2 weeks ago. Discharged home, f/u PMD, return to ED for worsening pain, fever, stiff neck, vomiting, dyspnea, or any other problem. - Medication Orders Current Medication Orders: Discontinued Medications Amoxicillin (Amoxil 500 Mg Cap) 1,000 mg PO STAT STA; Protocol Stop: 12/06/18 23:00 - Scribe Statement The provider has reviewed the documentation as recorded by the Malcom Hancock Provider Scribe Attestation: All medical record entries made by the Scribe were at my direction and personally dictated by me. I have reviewed the chart and agree that the record accurately reflects my personal performance of the history, physical exam, medical decision making, and the department course for this patient. I have also personally directed, reviewed, and agree with the discharge instructions and disposition. Disposition/Present on Arrival - Present on Arrival Any Indicators Present on Arrival: No History of DVT/PE: No History of Uncontrolled Diabetes: No Urinary Catheter: No History of Decub. Ulcer: No History Surgical Site Infection Following: None - Disposition Have Diagnosis and Disposition been Completed?: Yes Diagnosis: Otitis media Disposition: HOME/ ROUTINE Disposition Time: 10:55 Patient Plan: Discharge Patient Problems: Current Active Problems Problem Status Onset Otitis media Acute Condition: GOOD Discharge Instructions (ExitCare): Ear Infections (Otitis Media) Prescriptions: Amoxicillin 875 mg PO Q12H #19 tablet Referrals: PCP,NO [Primary Care Provider] - Follow up with primary Forms: [employer] (Iranian)
[2018-12-07 00:17] VITALS: BP 129/71; PULSE 81; RESP 17
== END 2018-12-06 23:15 | disposition home or self-care (01) ==
LOC: ED 22:07
DX: H66.92 Otitis media, unspecified, left ear (principal)